=== PATIENT | male | born 1985 ===

== ENCOUNTER 2018-05-31 08:56 | Outpatient (CLI) | payer OTHER ==
[~2018-05-31] VITALS: Ht 167.6 cm; Wt 63.0 kg
[2018-05-31] MEDS ORDERED: FLONASE16 GM NASAL (11:05)
[2018-05-31] MEDS ORDERED: MEDROL4 MG PO (11:05)
[2018-05-31] MEDS ORDERED: ZYRTEC10 MG PO (11:06)
== END 2018-05-31 09:15 | disposition home or self-care (01) ==
LOC: OFIC 805 08:56
DX: J45.998 Other asthma (principal); G47.33 Obstructive sleep apnea (adult) (pediatric); R06.83 Snoring; J31.0 Chronic rhinitis; J34.2 Deviated nasal septum; J34.3 Hypertrophy of nasal turbinates; J35.2 Hypertrophy of adenoids

== ENCOUNTER 2022-09-13 13:10 | Emergency (ER) | payer OTHER ==
[~2022-09-13] VITALS: Ht 167.6 cm; Wt 63.5 kg
[~2022-09-13 13:10] MED LIST: FLONASE16 GM NASAL; MEDROL4 MG PO; ZYRTEC10 MG PO
[2022-09-13] MEDS ORDERED: AZITHROMYCIN250 MG PO (13:43)
== END 2022-09-13 15:49 | disposition home or self-care (01) ==
LOC: ER 13:10
DX: R05.9 Cough, unspecified (principal); Z91.013 Allergy to seafood